=== PATIENT | female | born 1975 | race Caucasian/White ===

== ENCOUNTER 2016-10-26 15:05 | Emergency (ER) | payer OTHER ==
[~2016-10-26] VITALS: Ht 157.5 cm; Wt 78.0 kg
[~2016-10-26 15:05] MED LIST: ALIGN4 MG PO; ATIVAN2 MG PO; Ativan PO; B-122500 MC1 SL; BACLOFEN10 MG PO; BIOTIN 5000MCG PO; BIOTIN1000 MICRO PO; CALCIUM CITRAT250 MG PO; CELEBREX200 MG PO; CENTRUM COMPLE1 EACH PO; COLACE100 MG PO; CYMBALTA30 MG PO; CYMBALTA60 MG PO; Calan PO; Colace PO; EXALGO12 MG PO; FLEXERIL10 MG PO; HYDROCODON-ACE1 EAC7 PO; IMITREX100 MG PO; IRON18 MG PO; IRON27 MG PO; KLONOPIN0.5 M1 PO; KLONOPIN1 M1 PO; KlonoPIN PO; LAMICTAL100 MG PO; LEXAPRO20 MG PO; LYRICA75 MG PO; MAXALT10 MG PO; MORPHINE SULFAT15 M1 PO; MS Contin,Oramorph S PO; MULTIVITAMIN1 EAC1 PO; MULTIVITAMIN1 EAC2 PO; Maxalt PO; NEURONTIN300 MG PO; ORTHO TRI-CY1 TABLE1 PO; ORTHO TRI-CYCL1 EACH PO; TEGRETOL200 MG PO; THERAGRAN1 TABLET PO; VERAPAMIL ER120 MG PO; VERAPAMIL HCL120 M2 PO; VERAPAMIL HCL120 MG PO; VITAMIN B-122000 MC1 PO; VOSOL HC BOTH EARS; XANAX0.5 MG PO; ZOFRAN4 MG PO; ZYPREXA5 MG PO; ZyPREXA PO; baclofen; morphine; morphine IV
[2016-10-26 16:24] LABS: HEMATOCRIT 39.4 % (36.0-46.0); MCH 32.5 PG (29.0-34.0); MCHC 34.8 G/DL (30.0-36.0); MCV 93.4 FL (83-99); MEAN PLAT.VOLUME 10.1 uM^3 (9.5-12.4); RBC DIS.WIDTH-CV 11.6 % (11.8-14.6); RBC DIS.WIDTH-SD 39.4 % (39-53); RED BLOOD COUNT 4.22 M/uL (3.80-5.20); WHITE BLOOD COUNT 8.5 K/uL (4.1-10.2)
[2016-10-26 16:35] LABS: PLATELET COUNT 282 K/uL (156-360)
[2016-10-26 16:42] LABS: CHLORIDE 109 mEq/L (99-109); POTASSIUM 3.9 mEq/L (3.7-5.4); SODIUM 141 mEq/L (136-147)
[2016-10-26 16:44] LABS: GLUCOSE 86 mg/dL (70-99)
[2016-10-26 16:45] LABS: ANION GAP 8 MEQ/L (2-14)
[2016-10-26 16:46] LABS: TOTAL BILIRUBIN 0.3 mg/dL (0.0-1.0); TROP-I INTERPRETATION NEGATIVE; TROPONIN-I < 0.01 ng/mL (0.0-0.30)
[2016-10-26 16:47] LABS: ALKALINE PHOSPHATASE 87 IU/L (3-129)
[2016-10-26 16:48] LABS: GFR ESTIMATE (CALCULATED) > 59 mL/min/
[2016-10-26 16:49] LABS: UREA NITROGEN (BUN) 9 mg/dL (9-23)
[2016-10-26 17:00] LABS: QUANTITATIVE HCG < 4.0 MIU/ML
[2016-10-26 17:35] VITALS: BP 131/94
== END 2016-10-26 17:42 | disposition home or self-care (01) ==
LOC: EME 15:05
PROVIDERS: Physician Assistant
DX: S09.90XA Unspecified injury of head, initial encounter (principal); V47.0XXA Car driver injured in collision with fixed or stationary object in nontraffic accident, initial encounter
CPT/HCPCS: 70450; 80053; 80178; 84484; 84702; 85027; 93005; 99281; 99283

== ENCOUNTER 2016-12-21 12:10 | Emergency (ER) | payer OTHER ==
[~2016-12-21] VITALS: Ht 157.5 cm; Wt 79.1 kg
[2016-12-21 13:40] LABS: HEMATOCRIT 41.5 % (36.0-46.0); MCHC 33.7 G/DL (30.0-36.0); MCV 94.7 FL (83-99); MEAN PLAT.VOLUME 10.4 uM^3 (9.5-12.4); PLATELET COUNT 255 K/uL (156-360); RBC DIS.WIDTH-CV 11.7 % (11.8-14.6); RBC DIS.WIDTH-SD 40.5 % (39-53); RED BLOOD COUNT 4.38 M/uL (3.80-5.20); WHITE BLOOD COUNT 11.1 K/uL (4.1-10.2)
[2016-12-21 13:49] LABS: CHLORIDE 106 mEq/L (99-109); POTASSIUM 4.7 mEq/L (3.7-5.4); SODIUM 138 mEq/L (136-147)
[2016-12-21 13:51] LABS: GLUCOSE 96 mg/dL (70-99)
[2016-12-21 13:51] LABS: ADD MIUA? YES; BILIRUBIN NEGATIVE; BLOOD NEGATIVE; COLOR YELLOW ((YELLOW)); GLUCOSE (STRIP) NEGATIVE; KETONES NEGATIVE; LEUKOCYTES NEGATIVE; NITRITE NEGATIVE; PROTEIN (STRIP) 30; SPECIFIC GRAVITY 1.014 (1.000-1.030); UROBILINOGEN 0.2 MG/DL (0.2-1.0)
[2016-12-21 13:52] LABS: ANION GAP 7 MEQ/L (2-14)
[2016-12-21 13:53] LABS: TOTAL BILIRUBIN 0.3 mg/dL (0.0-1.0)
[2016-12-21 13:54] LABS: ALKALINE PHOSPHATASE 163 IU/L (3-129)
[2016-12-21 13:55] LABS: GFR ESTIMATE (CALCULATED) > 59 mL/min/
[2016-12-21 13:56] LABS: UREA NITROGEN (BUN) 6 mg/dL (9-23)
[2016-12-21 13:57] LABS: BACTERIA RARE /HPF; EPITHELIAL CELLS 3+ /HPF; HYALINE CASTS 0-5 /LPF; MUCUS TRACE /LPF; RED BLOOD CELLS 0-5 /HPF (0-5); UCUL ADDED? NO; WHITE BLOOD CELLS 0-5 /HPF (0-5)
[2016-12-21 13:58] LABS: LIPASE 76 U/L (1.0-51.0)
[2016-12-21 14:03] LABS: QUANTITATIVE HCG < 4.0 MIU/ML
[2016-12-21] MEDS ORDERED: MIRALAX17 GM PO (16:55)
[2016-12-21 17:13] VITALS: BP 145/60
== END 2016-12-21 17:26 | disposition home or self-care (01) ==
LOC: EME 12:10
PROVIDERS: Emergency Medicine
DX: K59.00 Constipation, unspecified (principal); R10.31 Right lower quadrant pain; Z98.84 Bariatric surgery status
CPT/HCPCS: 74177; 80053; 81003; 83690; 84702; 85027; 99281; 99284; J2270; J2405; J7030

== ENCOUNTER 2017-08-11 18:31 | Emergency (ER) | payer OTHER, BC ==
[~2017-08-11] VITALS: Ht 157.5 cm; Wt 74.4 kg
[~2017-08-11 18:31] MED LIST changes: +MIRALAX17 GM PO
[2017-08-11 19:13] LABS: HEMATOCRIT 44.5 % (36.0-46.0); HEMOGLOBIN 15.5 G/DL (11.9-15.5); MCHC 34.8 G/DL (30.0-36.0); MCV 97.6 FL (83-99); PLATELET COUNT 264 K/uL (156-360); RBC DIS.WIDTH-CV 11.6 % (11.8-14.6); RBC DIS.WIDTH-SD 41.9 % (39-53); RED BLOOD COUNT 4.56 M/uL (3.80-5.20); WHITE BLOOD COUNT 9.6 K/uL (4.1-10.2)
[2017-08-11 19:21] LABS: ALBUMIN 5.1 g/dL (3.2-4.8); CHLORIDE 108 mEq/L (99-109); POTASSIUM 3.6 mEq/L (3.7-5.4); SODIUM 141 mEq/L (136-147)
[2017-08-11 19:24] LABS: GLUCOSE 120 mg/dL (70-99); TOTAL PROTEIN 7.8 g/dL (6.4-8.3)
[2017-08-11 19:26] LABS: TOTAL BILIRUBIN 0.6 mg/dL (0.0-1.0)
[2017-08-11 19:27] LABS: ALKALINE PHOSPHATASE 192 IU/L (3-129); CREATININE 0.9 mg/dL (0.6-1.3); GFR ESTIMATE (CALCULATED) > 59 mL/min/; SERUM ETHYL ALCOHOL < 10 mg/dL
[2017-08-11 19:29] LABS: AST (GOT) 32 IU/L (2-34); UREA NITROGEN (BUN) 7 mg/dL (9-23)
[2017-08-11 19:30] LABS: ALT (GPT) 74 IU/L (3-49)
[2017-08-11 19:36] LABS: QUANTITATIVE HCG < 4.0 MIU/ML
[2017-08-11 21:09] LABS: AMPHETAMINE NEGATIVE (500 ng/mL); APPEARANCE CLEAR ((CLEAR)); BARBITURATES NEGATIVE (200 ng/mL); BENZODIAZEPINES NEGATIVE (150 ng/mL); BILIRUBIN NEGATIVE; BLOOD NEGATIVE; BUPRENORPHINE NEGATIVE (10 ng/mL); COCAINE NEGATIVE (150 ng/mL); COLOR YELLOW ((YELLOW)); GLUCOSE (STRIP) NEGATIVE; KETONES 20; LEUKOCYTES TRACE; METHADONE NEGATIVE (200 ng/mL); METHAMPHETAMINE NEGATIVE (500 ng/mL); NITRITE NEGATIVE; OPIATES (MORPHINE) PRESUMPTIVE POSITIVE (100 ng/mL); OXYCODONE NEGATIVE (100 ng/mL); PHENCYCLIDINE NEGATIVE (25 ng/mL); PROPOXYPHENE NEGATIVE (300 ng/mL); PROTEIN (STRIP) NEGATIVE; SPECIFIC GRAVITY 1.009 (1.000-1.030); THC CANNABINOIDS NEGATIVE (50 ng/mL); TRICYCLIC ANTIDEPRESSANTS NEGATIVE (300 ng/mL); UROBILINOGEN 0.2 MG/DL (0.2-1.0)
[2017-08-11 21:13] VITALS: BP 97/75
[2017-08-11 21:22] LABS: BACTERIA RARE /HPF; EPITHELIAL CELLS 2+ /HPF; MUCUS TRACE /LPF; RED BLOOD CELLS 0-5 /HPF (0-5)
== END 2017-08-11 21:17 | disposition home or self-care (01) ==
LOC: EME 18:31
PROVIDERS: Emergency Medicine
DX: F10.10 Alcohol abuse, uncomplicated (principal); Y90.0 Blood alcohol level of less than 20 mg/100 ml; G89.29 Other chronic pain; F32.9 Major depressive disorder, single episode, unspecified; F41.9 Anxiety disorder, unspecified; G25.81 Restless legs syndrome; M79.7 Fibromyalgia; Z98.84 Bariatric surgery status
CPT/HCPCS: 80053; 80178; 81003; 84702; 84999; 85027; 99281; 99285; G0480; J1630; J2060; J7030